=== PATIENT | female | born 1940 | race Caucasian/White ===

== ENCOUNTER → 2017-06-07 | Outpatient (CLI) | payer OTHER ==
[~2017-06-07] MED LIST: CALCIUM 500 +1 EAC4 PO; CRESTOR; FISHOIL; GLUCOSAMINE SU500 MG PO; IRON; LEVOTHROID125 MCG PO; MECLIZINE 25 MG25 M1 PO; MULTIVITAMINS; VALIUM2 MG PO; VITAMIN E400 UNIT PO; ZOFRAN 4 MG ORAL4 M1 DIS
== END ==
LOC: RAD 00:51
DX: Z12.31 Encounter for screening mammogram for malignant neoplasm of breast (principal)

== ENCOUNTER → 2017-06-14 | Outpatient (CLI) | payer OTHER | LOC: ULTRA 01:18 | DX: N63.0 Unspecified lump in unspecified breast (principal) ==

== ENCOUNTER → 2017-08-03 | Outpatient (CLI) | payer OTHER | LOC: NUC 13:26 | DX: M81.0 Age-related osteoporosis without current pathological fracture (principal); M85.89 Other specified disorders of bone density and structure, multiple sites ==

== ENCOUNTER → 2018-12-11 | Outpatient (CLI) | payer OTHER | LOC: RAD 15:00 | DX: Z12.31 Encounter for screening mammogram for malignant neoplasm of breast (principal) ==

== ENCOUNTER → 2018-12-28 | Outpatient (CLI) | payer OTHER | LOC: NUC 09:46 | DX: M81.0 Age-related osteoporosis without current pathological fracture (principal) ==

== ENCOUNTER 2019-07-16 14:12 | Inpatient (IN) | payer OTHER ==
[~2019-07-16] VITALS: Ht 167.6 cm; Wt 77.5 kg
[2019-07-16] VITALS (7 sets, daily range): BP systolic 150–212; BP diastolic 66–108
[2019-07-16 14:39] LABS: URINE BILIRUBIN NEGATIVE (Negative); URINE BLOOD NEGATIVE (Negative); URINE CLARITY CLEAR; URINE COLOR YELLOW; URINE GLUCOSE-RANDOM* NEGATIVE (Negative); URINE KETONES NEGATIVE (Negative); URINE LEUKOCYTES-REFLEX NEGATIVE (Negative); URINE NITRITE-REFLEX NEGATIVE (Negative); URINE PROTEIN (DIPSTICK) NEGATIVE (Negative); URINE UROBILINOGEN 0.2 E.U./dl (0.2-1.0)
[2019-07-16 14:47] LABS: AMP/METHAMP Negative (Negative); BARBITURATES Negative (Negative); BENZODIAZEPINES Negative (Negative); COCAINE Negative (Negative); METHADONE Negative (Negative); OPIATES Negative (Negative); PCP Negative (Negative)
[2019-07-16 14:54] LABS: ABSOLUTE NEUTROPHILS 4.1 thou/uL (1.4-8.2); EOSINOPHILS 1.1 % (0.0-3.0); HEMATOCRIT 47.9 % (37.0-47.0); HEMOGLOBIN 16.1 gm/dL (12.0-15.0); LYMPHOCYTES 33.1 % (24.0-44.0); MCHC 33.7 g/dL (28.0-37.0); MCV 86.2 fL (80.0-100.0); MONOCYTES 7.1 % (1.0-8.0); PLATELET COUNT 247 thou/uL (150-400); POLYS 57.7 % (36.0-66.0); RBC 5.56 mil/uL (4.20-5.00); RDW 14.3 % (10.5-14.5); WBC 7.2 thou/uL (4.0-11.0)
[2019-07-16 15:05] LABS: ANION GAP 8 mmol/L (7-16); BUN 19 mg/dL (7-18); CALCIUM 9.4 mg/dL (8.5-10.1); CHLORIDE 102 mmol/L (98-107); CO2 29 mmol/L (21-32); CREATININE 1.1 mg/dL (0.6-1.0); GLUCOSE 104 mg/dL (74-106); POTASSIUM 3.7 mmol/L (3.5-5.1); SODIUM 139 mmol/L (136-145)
[2019-07-16 15:13] LABS: ALBUMIN 4.4 g/dL (3.4-5.0); MAGNESIUM 2.1 mg/dL (1.8-2.4); SGOT 31 U/L (15-37); SGPT 47 U/L (30-65); TOTAL BILIRUBIN 0.8 mg/dL (<0.1-1.0); TOTAL PROTEIN 7.9 g/dL (6.4-8.2); TROPONIN-I <0.06 ng/mL (<0.06)
[2019-07-16] MEDS ORDERED: COLESEVELAM HC625 MG PO (16:10)
[2019-07-17] VITALS (9 sets, daily range): BP systolic 124–163; BP diastolic 57–82
[2019-07-17 05:25] LABS: ABSOLUTE NEUTROPHILS 3.8 thou/uL (1.4-8.2); BASOPHILS 0.5 % (0.0-2.0); EOSINOPHILS 0.9 % (0.0-3.0); HEMATOCRIT 44.9 % (37.0-47.0); HEMOGLOBIN 15.2 gm/dL (12.0-15.0); LYMPHOCYTES 39.3 % (24.0-44.0); MCH 29.2 pg (26.0-34.0); MCHC 33.9 g/dL (28.0-37.0); MCV 86.1 fL (80.0-100.0); MONOCYTES 7.1 % (1.0-8.0); PLATELET COUNT 242 thou/uL (150-400); POLYS 52.2 % (36.0-66.0); RBC 5.22 mil/uL (4.20-5.00); RDW 14.5 % (10.5-14.5); WBC 7.3 thou/uL (4.0-11.0)
[2019-07-17 05:49] LABS: ANION GAP 12 mmol/L (7-16); BUN 21 mg/dL (7-18); CHLORIDE 104 mmol/L (98-107); CHOLESTEROL 246 mg/dL (<200); CO2 24 mmol/L (21-32); CREATININE 1.1 mg/dL (0.6-1.0); GLUCOSE 82 mg/dL (74-106); HDL CHOLESTEROL 60 mg/dL (>40); LDL CHOLESTEROL 171 mg/dL (<100); MAGNESIUM 2.1 mg/dL (1.8-2.4); POTASSIUM 3.6 mmol/L (3.5-5.1); SODIUM 140 mmol/L (136-145); TC:HDL 4.1 Ratio (Not establshd); TRIGLYCERIDE 79 mg/dL (<150); VLDL 16 mg/dL (<40)
[2019-07-17 05:50] LABS: SERUM ASSESSMENT Clear
--- NOTE | 2019-07-17 08:06 | EKG ---
[facility] [place] [address] ELECTROCARDIOGRAM REPORT Name: CECILIO BARRETT Room #: 200-I ADM IN M.R.#: [id number] Admission: 07/16/19 Attend Phys: Jose Luis Song MD Discharge: Date of : 44 Report #: [id number] THIS REPORT FOR: cc: [place] Alvarez Steven F. DO Couchonnal, Luis F. MD ~ THIS REPORT FOR: //name// [facility] ED Test Date: 2019-07-16 Test Time: 15:16:25 Pat Name: CECILIO BARRETT Department: Room: 200 Gender: F Pin [employer]er: DEB : 1940 Requested By: Candida Anthony Order Number: [id number] MD: Dionisio Bhatt Measurements Intervals [place] Rate: 77 P: 77 VA: 173 QRS: 73 QRSD: 94 T: 39 QT: 383 QTc: 434 Interpretive Statements Sinus rhythm Probable left atrial enlargement Compared to ECG 10/20/2009 04:45:36 No significant changes Electronically Signed On 07-17-2019 8:05:07 CDT by Dionisio Bhatt [email or web address] <ELECTRONICALLY SIGNED> By: Dionisio Bhatt MD 07/17/19 0805 1516 1516 Dionisio Bhatt MD /EPI
[2019-07-17 10:22] LABS: TSH 2.24 uIU/mL (0.358-3.740)
--- NOTE | 2019-07-17 13:50 | 2DMMODE ---
[facility] [place] [address] 2 D/M-MODE ECHOCARDIOGRAM Name: CECILIO BARRETT Room #: 200-I ADM IN M.R.#: [id number] Admission: 07/16/19 Attend Phys: Jose Luis Song MD Discharge: Date of : 44 Report #: [id number] THIS REPORT FOR: cc: [place] Alvarez,Jeronimo Stevens MD ~ APPROVED REPORT Study performed: 07/17/2019 12:48:15 EXAM: Comprehensive 2D, Doppler, and color-flow Echocardiogram Patient Location: Bedside Room #: 200 Status: routine BSA: 1.91 HR: 65 bpm BP: 146/71 mmHg Rhythm: NSR Other Information Study Quality: Adequate Indications Hypertension. Hx: HLP 2D Dimensions RVDd: 34.39 mm IVSd: 13.00 (7-11mm) LVOT Diam: 19.55 (18-24mm) LVDd: 34.67 mm PWd: 10.83 (7-11mm) Ascending Ao: 29.46 (22-36mm) LVDs: 25.12 (25-40mm) Aortic Root: 29.45 mm Volumes Left Atrial Volume (Systole) Single Plane 4CH: 30.51 mL Single Plane 2CH: 35.44 mL LA ESV Index: 19.00 mL/m2 Aortic Valve AoV Peak Maxwell.: 1.34 m/s AO Peak Gr.: 7.14 mmHg LVOT Max P.82 mmHg LVOT Max V: 1.40 m/s MARIE Vmax: 3.14 cm2 [facility] [address] [place] [address] 2 D/M-MODE ECHOCARDIOGRAM Name: TESSY BARRETTFLOYD BERNARDO Room #: 200-I [facility]#: [id number] Admission: 07/16/19 Attend Phys: Jose Luis Song MD Discharge: Date of : 44 Report #: [id number] Mitral Valve E/A Ratio: 0.8 MV Decel. Time: 311.39 ms MV E Max Maxwell.: 0.78 m/s MV A Maxwell.: 0.99 m/s MV PHT: 90.30 ms IVRT: 72.66 ms Pulmonary Valve PV Peak Maxwell.: 1.09 m/s PV Peak Gr.: 4.79 mmHg Pulmonary Vein P Vein S: 0.59 m/s P Vein A: 0.31 m/s P Vein D: 0.41 m/s P Vein A Dur.: 93.4 msec P Vein S/D Ratio: 1.44 Tricuspid Valve TR Peak Maxwell.: 2.22 m/s RAP Estimate: 5.00 mmHg TR Peak Gr.: 20.00 mmHg PA Pressure: 25.00 mmHg Left Ventricle The left ventricle is normal size. There is normal LV segmental wall motion. Mild basal septal hypertrophy is present. Left ventricular systolic function is normal. LVEF is 60-65%. Mild diastolic dysfunction is present (impaired relaxation pattern). Right Ventricle The right ventricle is normal size. The right ventricular systolic function is normal. Atria The left atrium size is normal. The right atrium size is normal. Aortic Valve Aortic valve leaflets are mildly thickened and calcified. No aortic regurgitation is present. There is no aortic valvular stenosis. Mitral Valve The mitral valve is normal in structure. There is no mitral valve regurgitation noted. No evidence of mitral valve stenosis. Tricuspid Valve The tricuspid valve is normal in structure. Trace tricuspid [facility] [address] [place] [address] 2 D/M-MODE ECHOCARDIOGRAM Name: CECILIO BARRETT Room #: 200-I ADM IN .R.#: [id number] Admission: 07/16/19 Attend Phys: Jose Luis Song MD Discharge: Date of : 44 Report #: [id number] regurgitation. Estimated PAP is 25mmHg. Pulmonic Valve The pulmonary valve is normal in structure. Trace pulmonic regurgitation. Great Vessels The aortic root is normal in size. The ascending aorta is normal in size. IVC is normal in size and collapses >50% with inspiration. Pericardium There is no pericardial effusion. <Conclusion> The left ventricle is normal size. Mild basal septal hypertrophy is present. Left ventricular systolic function is normal. Mild diastolic dysfunction is present (impaired relaxation pattern). The right ventricle is normal size. The left atrium size is normal. Aortic valve leaflets are mildly thickened and calcified. There is no mitral valve regurgitation noted. Trace tricuspid regurgitation. Estimated PAP is 25mmHg. <ELECTRONICALLY SIGNED> By: Jeronimo Rangel MD 07/17/19 1348 1348 1348 Jeronimo Rangel MD /INF
[2019-07-18 04:34] VITALS: BP 126/77
[2019-07-18 08:00] VITALS: BP 135/73
[2019-07-18] MEDS ORDERED: LIPITOR 20 MG T20 M1 PO (10:11)
[2019-07-18] MEDS ORDERED: NORVASC5 MG PO (10:12)
[2019-07-18 10:25] VITALS: BP 125/73
== END 2019-07-18 11:36 | disposition home or self-care (01) | DRG 305 ==
LOC: ER 14:12 → EROBS 16:31 → 2N 16:31
PROVIDERS: Nurse Practitioner; Nurse Practitioner Family; ADMIT Hospitalist
DX: I16.1 Hypertensive emergency (principal); E03.9 Hypothyroidism, unspecified; E78.5 Hyperlipidemia, unspecified; E78.00 Pure hypercholesterolemia, unspecified; N18.3 Chronic kidney disease, stage 3 (moderate); M85.80 Other specified disorders of bone density and structure, unspecified site; I12.9 Hypertensive chronic kidney disease with stage 1 through stage 4 chronic kidney disease, or unspecified chronic kidney disease
CPT/HCPCS: 10081

== ENCOUNTER → 2020-01-16 | Outpatient (CLI) | payer OTHER ==
[~2020-01-16] MED LIST changes: +COLESEVELAM HC625 MG PO; +LIPITOR 20 MG T20 M1 PO; +NORVASC5 MG PO
== END ==
LOC: BC 12:24
PROVIDERS: ATTEND Neuromusculoskeletal Medicine & OMM
DX: Z12.31 Encounter for screening mammogram for malignant neoplasm of breast (principal)

== ENCOUNTER → 2021-03-22 | Outpatient (CLI) | payer OTHER | LOC: BC 09:37 | PROVIDERS: ATTEND Nurse Practitioner | DX: Z12.31 Encounter for screening mammogram for malignant neoplasm of breast (principal); N64.89 Other specified disorders of breast ==